=== PATIENT | female | born 1960 | race Caucasian/White ===

== ENCOUNTER → 2023-12-14 07:30 | Outpatient (REF) | payer MEDICARE, SELFPAY | LOC: WDC 07:30 | PROVIDERS: ATTENDING PHYSICIAN Obstetrics & Gynecology; FAMILY PHYSICIAN Family Medicine | DX: Z78.0 Asymptomatic menopausal state (principal); Z12.31 Encounter for screening mammogram for malignant neoplasm of breast | CPT/HCPCS: 77063; 77067; 77080 ==

== ENCOUNTER → 2024-02-08 09:59 | Outpatient (REF) | payer MEDICARE, SELFPAY | LOC: MRI 3T 09:59 | PROVIDERS: ATTENDING PHYSICIAN Otolaryngology; FAMILY PHYSICIAN Family Medicine | DX: C80.1 Malignant (primary) neoplasm, unspecified (principal); K11.8 Other diseases of salivary glands; E07.89 Other specified disorders of thyroid | CPT/HCPCS: 70543; A9575 ==

== ENCOUNTER → 2024-03-23 10:24 | Outpatient (REF) | payer MEDICARE, SELFPAY | LOC: RAD 10:24 | PROVIDERS: ATTENDING PHYSICIAN Otolaryngology; FAMILY PHYSICIAN Family Medicine | DX: C80.1 Malignant (primary) neoplasm, unspecified (principal); K11.8 Other diseases of salivary glands; E07.89 Other specified disorders of thyroid | CPT/HCPCS: 76536 ==

== ENCOUNTER 2024-05-11 05:58 | Day surgery (SDC) | payer MEDICARE, SELFPAY ==
[2024-05-11] VITALS (8 sets, daily range): BP systolic 120–159; BP diastolic 65–99; BMI 23.5
[2024-05-11 08:54] LABS: ACT-LR - POC 269 Seconds (116-155)
[2024-05-11 09:15] LABS: ACT-LR - POC 276 Seconds (116-155)
[2024-05-11 09:54] LABS: ACT-LR - POC 218 Seconds (116-155)
--- NOTE | 2024-05-11 10:10 | ITS.CL.ABL ---
[facility] - Ablation
Ablation
Procedure Report:
Primary Physician: Carolyn Angela MD
Primary [employer] Coordinator: Isabella Greenberg MD
Procedure Date: 05/11/2024
Procedure
Electrophysiology Study with SVT ablation
Left atrial recording / pacing
IV drug for arrhythmia induction
Patient History
Patient is a pleasant 63-year-old female with past medical history significant for Bandar's thyroiditis, hypercholesterolemia, Raynaud's disease, right-sided parotid tumor s/p resection 2022, and paroxysmal symptomatic SVT. SVT characterized by
twelve-lead ECG is a short RP tachycardia. Previously managed on beta-rito therapy with recurrence.
Method
After informed consent was obtained, the patient was brought to the EP lab in a post-absorptive, non-sedated state. A peripheral IV was in place. Continuous electrocardiography, blood pressure and pulse oximetry monitoring was initiated and
cardioversion / defibrillator electrodes were positioned on the chest in an AP orientation. A 'time-out' was called. Conscious sedation was administered with the assistance of the anesthesia services, and local anesthesia was given at the femoral
vein access sites.
Using modified Seldinger technique, vascular access was achieved and sheaths were placed. Multipolar catheters were advanced to the coronary sinus, His bundle recording position, right ventricle, and high right atrium. Following the determination
of baseline conduction intervals, comprehensive EP study was performed. Pacing and recording from the RA, RV, HBE, and CS / LA was performed.
For arrhythmia details, see below.
Fluoroscopy time:
5.1 min; 8.5 mGy; DAP 1.03
Estimated Blood Loss
5 mL
Complications
None
At the end of the procedure, all catheters and sheaths were removed and hemostasis was assured with Vascade and manual pressure. The patient was returned to the recovery area in stable condition.
Access Sites:
Left Femoral Vein: 2 sheaths (7 Fr, 6 Fr)
Right Femoral Vein: 2 sheaths (9 Fr upsized to 11.5 Fr, 6 Fr)
Baseline Intervals:
Rhythm: SR
AR: 159 ms
AH: 74 ms
HV: 49 ms
QRS: 81 ms
QT: 398 ms
QTc: 431 ms
A-A: 852 ms
R-R: 852 ms
Post-Procedure Intervals:
AR: 140 ms
AH: 83 ms
HV: 39 ms
QRS: 76 ms
QT: 303 ms
QTc: 412 ms
AV Conduction:
- AVWB at 380 msec
- VAWB at 370 msec
Refractory Periods
- AVNERP: 600/280 ms
- AERP: 600/230 ms
Procedure Synopsis:
The patient entered the room in sinus rhythm. Following access under ultrasound guidance, catheters were placed in the positions as noted above. Baseline intervals and measurements were taken. Baseline pacing threshold was performed for RV, CS,
and HRA. Para-Hisian pacing demonstrated a stephan response. Patient had robust AV and VA conduction as noted above. During baseline electrophysiology study, patient was noted to have an AH jump at 600/350 ms. Additionally, patient had consistent
induction at 600/310 ms from HRA catheter demonstrating A�on�V tachycardia. With ventricular overdrive pacing, there was a VAV response. Based on this evidence, and patient's clinical picture, patient demonstrated typical AVNRT. HRA catheter was
removed and the short 9 Bangl[place]hi sheath was exchanged for an 11.5 [place]hi steerable sheath. Patient was given heparin and HD grid catheter was advanced into the right atrium. Sinus rhythm was mapped with clear differentiation between fast and slow
pathways as well as HIS cloud. Following extensive mapping, HD grid was removed and TactiCath DF SE was advanced through the steerable sheath. Using low flow, 25 W, and careful monitoring of temperature, force, impedance, ablation was performed
with a�V ratio of 1:3 - 1:10 at the level of the floor of the coronary sinus without evidence of HIS on ablation distal. During ablation, patient was noted to have slow junctional beats consistent with slow pathway modification. Patient maintained
AV conduction throughout the entirety of study. Following thorough ablation and monitoring, sedation was reduced and patient started on isoproterenol. Electrophysiology was once more performed. Intervals remain consistent with preprocedural
intervals. Patient no longer possess an AH jump and was noninducible for AVNRT or other SVT. This was repeated during isoproterenol washout and again patient remained noninducible for SVT and did not possess AH jump. Following completion of
study, catheters were removed, and hemostasis was achieved with Vascade.
Recommendations
- Admit to telemetry
- Bedrest with straight-leg precautions
- Continue home medications as indicated including metoprolol for now
- Follow-up in office in 4-6 weeks
Arsh Ramos DO
Clinical Cardiac Electrophysiology
cc: Carolyn Angela MD; Isabella Greenberg MD
== END 2024-05-11 11:59 | disposition home or self-care (01) ==
LOC: CATH 05:58
PROVIDERS: ATTENDING PHYSICIAN Internal Medicine Cardiovascular Disease; FAMILY PHYSICIAN Family Medicine; OTHER PHYSICIAN Internal Medicine Cardiovascular Disease
DX: I47.10 Supraventricular tachycardia, unspecified (principal); I73.00 Raynaud's syndrome without gangrene; E78.00 Pure hypercholesterolemia, unspecified; E06.3 Autoimmune thyroiditis; G47.33 Obstructive sleep apnea (adult) (pediatric); Z87.891 Personal history of nicotine dependence; Z85.9 Personal history of malignant neoplasm, unspecified
CPT/HCPCS: C1732; C1730; C1894; C1766; C2630; C1892; 76937; 85347; 93005; 93653; C1760

== ENCOUNTER → 2024-10-31 08:18 | Outpatient (REF) | payer MEDICARE, SELFPAY | LOC: PAVMRI 08:18 | PROVIDERS: ATTENDING PHYSICIAN Otolaryngology; FAMILY PHYSICIAN Family Medicine | DX: C80.1 Malignant (primary) neoplasm, unspecified (principal); K11.8 Other diseases of salivary glands; E07.89 Other specified disorders of thyroid | CPT/HCPCS: 70543; A9575 ==

== ENCOUNTER 2024-12-12 06:15 | Outpatient (RCR) | payer MEDICARE, SELFPAY | END 2024-12-12 23:59 | disposition home or self-care (01) | LOC: RPT 06:15 | PROVIDERS: ATTENDING PHYSICIAN Family Medicine Geriatric Medicine; FAMILY PHYSICIAN Family Medicine | DX: K11.8 Other diseases of salivary glands (principal); I89.0 Lymphedema, not elsewhere classified; Z73.6 Limitation of activities due to disability | CPT/HCPCS: 97163; 97530 ==

== ENCOUNTER → 2024-12-14 10:21 | Outpatient (REF) | payer MEDICARE, SELFPAY | LOC: WDC 10:21 | PROVIDERS: ATTENDING PHYSICIAN Obstetrics & Gynecology; FAMILY PHYSICIAN Family Medicine | DX: Z12.31 Encounter for screening mammogram for malignant neoplasm of breast (principal) | CPT/HCPCS: 77063; 77067 ==

== ENCOUNTER 2025-01-15 13:58 | Outpatient (RCR) | payer MEDICARE, SELFPAY | END 2025-01-15 23:59 | disposition home or self-care (01) | LOC: RPT 13:58 | PROVIDERS: ATTENDING PHYSICIAN Family Medicine Geriatric Medicine; FAMILY PHYSICIAN Family Medicine | DX: K11.8 Other diseases of salivary glands (principal); I89.0 Lymphedema, not elsewhere classified; Z73.6 Limitation of activities due to disability | CPT/HCPCS: 97140; 97530 ==

== ENCOUNTER 2025-02-05 10:10 | Outpatient (RCR) | payer MEDICARE, SELFPAY | END 2025-02-05 23:59 | disposition home or self-care (01) | LOC: RPT 10:10 | PROVIDERS: ATTENDING PHYSICIAN Family Medicine Geriatric Medicine; FAMILY PHYSICIAN Family Medicine | DX: K11.8 Other diseases of salivary glands (principal); I89.0 Lymphedema, not elsewhere classified; Z73.6 Limitation of activities due to disability | CPT/HCPCS: 97112; 97140 ==

== ENCOUNTER → 2025-02-06 08:44 | Outpatient (REF) | payer MEDICARE, SELFPAY | LOC: PAVMRI 08:44 | PROVIDERS: ATTENDING PHYSICIAN Nurse Practitioner Family | DX: C80.1 Malignant (primary) neoplasm, unspecified (principal); R59.0 Localized enlarged lymph nodes | CPT/HCPCS: 70543; A9575 ==

== ENCOUNTER 2025-02-19 10:03 | Outpatient (RCR) | payer MEDICARE, SELFPAY | END 2025-02-19 12:59 | disposition home or self-care (01) | LOC: RPT 10:03 | PROVIDERS: ATTENDING PHYSICIAN Family Medicine Geriatric Medicine; FAMILY PHYSICIAN Family Medicine | DX: K11.8 Other diseases of salivary glands (principal); I89.0 Lymphedema, not elsewhere classified; Z73.6 Limitation of activities due to disability | CPT/HCPCS: 97140; 97530 ==

== ENCOUNTER → 2025-04-30 10:42 | Outpatient (REF) | payer MEDICARE, SELFPAY | LOC: RAD 10:42 | PROVIDERS: ATTENDING PHYSICIAN Family Medicine Geriatric Medicine; FAMILY PHYSICIAN Family Medicine | DX: E04.1 Nontoxic single thyroid nodule (principal) | CPT/HCPCS: 76536 ==